=== PATIENT | female | born 1975 | race Caucasian/White ===

== ENCOUNTER 2020-02-27 09:38 | Outpatient (CLI) | payer OTHER, SELFPAY ==
[2020-02-28 14:30] LABS: SARS-CoV-2 RNA PCR Negative
== END 2020-02-27 09:39 | disposition home or self-care (01) ==
LOC: CHSLAB 09:43
PROVIDERS: PCP Internal Medicine; Visit Provider Internal Medicine
DX: R05 Cough (principal); R43.9 Unspecified disturbances of smell and taste; R52 Pain, unspecified
CPT/HCPCS: 87635; C9803; U0003

== ENCOUNTER 2020-08-05 11:11 | Outpatient (CLI) | payer BC, SELFPAY ==
[2020-08-05 12:05] LABS: Influenza Control Valid (Valid); SARS-CoV-2 Ag Negative (Negative)
[2020-08-06 18:33] LABS: SARS-CoV-2 RNA PCR Negative
== END 2020-08-05 11:12 | disposition home or self-care (01) ==
LOC: CHSLAB 11:19
PROVIDERS: PCP Internal Medicine; Visit Provider Internal Medicine
DX: R52 Pain, unspecified (principal); R50.9 Fever, unspecified; Z20.822 Contact with and (suspected) exposure to COVID-19
CPT/HCPCS: 87426; 87804; C9803; U0003; U0005

== ENCOUNTER 2021-01-07 13:01 | Outpatient (CLI) | payer BC, SELFPAY ==
[2021-01-07 14:25] LABS: SARS-CoV-2 RNA PCR Negative (Negative)
== END 2021-01-07 13:02 | disposition home or self-care (01) ==
LOC: CHSLAB 13:04
PROVIDERS: PCP Internal Medicine; Visit Provider Internal Medicine
DX: J06.9 Acute upper respiratory infection, unspecified (principal); Z20.822 Contact with and (suspected) exposure to COVID-19
CPT/HCPCS: C9803; U0003; U0005

== ENCOUNTER 2021-04-25 10:33 | Outpatient (CLI) | payer BC, SELFPAY ==
[2021-04-25 12:12] LABS: SARS-CoV-2 RNA PCR Negative (Negative)
== END 2021-04-25 10:34 | disposition home or self-care (01) ==
LOC: CHSLAB 10:35
PROVIDERS: PCP Internal Medicine; Visit Provider Internal Medicine
DX: Z20.822 Contact with and (suspected) exposure to COVID-19 (principal)
CPT/HCPCS: C9803; U0003; U0005

== ENCOUNTER 2021-06-09 09:39 | Outpatient (CLI) | payer BC, SELFPAY ==
[2021-06-09 11:01] LABS: Influenza Control Valid (Valid); SARS-CoV-2 Ag Negative (Negative)
== END 2021-06-09 09:40 | disposition home or self-care (01) ==
LOC: CHSLAB 09:41
PROVIDERS: PCP Internal Medicine; Visit Provider Internal Medicine
DX: J06.9 Acute upper respiratory infection, unspecified (principal); Z20.822 Contact with and (suspected) exposure to COVID-19
CPT/HCPCS: 87081; 87426; 87804; 87880; C9803

== ENCOUNTER 2021-07-23 13:25 | Outpatient (CLI) | payer BC, SELFPAY ==
--- NOTE | ~2021-07-23 | XR_ITS ---
EXAMINATION: XR chest 2V 07/23/2021 13:45 INDICATION: Wheezing and cough PROCEDURE: 2 view chest COMPARISON: 07/18/2012 FINDINGS: The lungs are clear. The cardiomediastinal silhouette is within normal limits. There are no pleural effusions. There is no pneumothorax suspected. IMPRESSION: 1: NO ACUTE CARDIOPULMONARY DISEASE. Reviewed, dictated and finalized at location A. ORT OPERATIONS SPECIALIST
[2021-07-23 13:37] LABS: Basophils Absolute Auto 0.03 K/mm3 (0.00-0.10); Basophils Percent Auto 0.3 % (0.0-1.0); Eosinophils Absolute Auto 0.18 K/mm3 (0.02-0.50); Eosinophils Percent Auto 1.7 % (1.0-6.0); Hematocrit 45.6 % (35.0-49.0); Hemoglobin 15.3 g/dL (12.0-15.0); Immature Granulocyte Absolute 0.03 K/mm3 (0.00-0.00); Immature Granulocyte Percent A 0.3 % (0.0-0.0); Lymphocytes Absolute Auto 2.94 K/mm3 (1.10-4.50); Mean Corpuscular HGB Conc 33.6 g/dL (32.0-36.0); Mean Corpuscular Hemoglobin 30.4 pg (27.0-31.0); Mean Corpuscular Volume 90.7 fL (78.0-102.0); Mean Platelet Volume 10.3 fl (9.2-11.8); Monocytes Absolute Auto 0.97 K/mm3 (0.10-0.90); Monocytes Percent Auto 9.2 % (2.0-11.0); Neutrophils Absolute Auto 6.4 K/mm3 (1.7-7.2); Neutrophils Percent Auto 60.5 % (50.0-70.0); Platelet Count Result 266 K/mm3 (150-420); Red Blood Count 5.03 M/mm3 (4.20-5.40); White Blood Count 10.5 K/mm3 (4.8-10.8)
[2021-07-23 13:45] LABS: Hemoglobin A1C 6.1 % (<5.7)
[2021-07-23 14:19] LABS: Alanine Aminotransferase 30 U/L (14-59); Albumin Level 3.7 g/dL (3.4-5.0); Alkaline Phosphatase 76 U/L (46-116); Anion Gap 9 mmol/L (8-16); Aspartate Amino Transferase 15 U/L (15-37); Bilirubin,Total 0.5 mg/dL (0.00-1.00); Blood Urea Nitrogen 10 mg/dL (7-18); Calcium 8.9 mg/dL (8.5-10.1); Carbon Dioxide 28 mmol/L (21-32); Chloride 102 mmol/L (98-108); Estimated Glomerular Filt Rate > 60; Glucose 92 mg/dL (70-99); Osmolality Calculated 287 mOsm/kg (285-295); Sodium 139 mmol/L (136-145); Total Protein 7.2 g/dL (6.4-8.2)
== END 2021-07-23 13:26 | disposition home or self-care (01) ==
LOC: CHSLAB 13:28
PROVIDERS: PCP Internal Medicine; Visit Provider Internal Medicine
DX: R06.2 Wheezing (principal); R05.9 Cough, unspecified; E11.9 Type 2 diabetes mellitus without complications
CPT/HCPCS: 36415; 71046; 80053; 83036; 85025

== ENCOUNTER 2021-09-17 09:37 | Outpatient (CLI) | payer BC, SELFPAY ==
--- NOTE | ~2021-09-17 | XR_ITS ---
EXAMINATION: XR chest 2V DATE: 09/17/2021 09:55 INDICATION: Pectus excavatum. Chest lump. TECHNIQUE: Frontal and lateral views of the chest were obtained. COMPARISON: Chest 2 views 07/23/2021, chest CT 07/18/2012 FINDINGS: There is no pneumonia, pleural effusion, or pneumothorax. The heart size is normal. Surgica l clips in the right upper quadrant are likely from cholecystectomy. There is no pectus excavatum. Th e inferior tip of the xiphoid process curves anteriorly, a normal variant. IMPRESSION: 1. The inferior tip of the xiphoid process curves anteriorly, a normal variant. Reviewed, dictated and finalized at location A.
== END 2021-09-17 09:38 | disposition home or self-care (01) ==
LOC: CHSIMG 09:39
PROVIDERS: PCP Internal Medicine; Visit Provider Nurse Practitioner Family
DX: Q67.6 Pectus excavatum (principal); R22.2 Localized swelling, mass and lump, trunk
CPT/HCPCS: 71046

== ENCOUNTER 2021-09-30 08:02 | Outpatient (CLI) | payer BC, SELFPAY ==
--- NOTE | ~2021-09-30 | CT_ITS ---
EXAMINATION: CT diagnostic chest w con DATE: 09/30/2021 08:48 INDICATION: Chest mass for 2 weeks at lower sternal area. No pain. Smoker. TECHNIQUE: Computed tomography (CT) of the chest was performed with 100 CC Omnipaque 350 intravenous contrast. Automated exposure control and iterative reconstruction technique were employed. Exam dose: 225.43 mGy-cm total exam DLP. COMPARISON: 09/17/2021 2 view chest 07/18/2012 CT chest FINDINGS: Normal heart size. No pericardial effusion. No hilar or mediastinal mass lesion or lymphade nopathy. No thoracic aortic aneurysm or dissection. No evidence of pulmonary embolism. No pulmonary infiltrate or consolidation or pulmonary mass lesion. Normal morphology of the adrenal glands. Status post cholecystectomy. The xiphoid process of the sternum projects anteriorly, which likely accounts for the clinical compla int of lump in this area. Included skeletal structures are otherwise unremarkable. IMPRESSION: Anteriorly projecting xiphoid process of sternum, which likely accounts for the clinical ly described chest mass at the lower sternal area Reviewed, dictated and finalized at Location A. Reviewed, dictated and finalized at location B. IMPRESSION: Anteriorly projecting xiphoid process of sternum, which likely acc ounts for the clinically described chest mass at the lower sternal area
== END 2021-09-30 08:03 | disposition home or self-care (01) ==
LOC: CHSIMG 08:04
PROVIDERS: PCP Internal Medicine; Visit Provider Nurse Practitioner Family
DX: R22.2 Localized swelling, mass and lump, trunk (principal)
CPT/HCPCS: 71260; Q9967

== ENCOUNTER 2023-03-31 16:05 | Outpatient (CLI) | payer BC, SELFPAY ==
[2023-03-31 16:55] LABS: SARS-CoV-2 RNA PCR Negative (Negative)
== END 2023-03-31 16:06 | disposition home or self-care (01) ==
LOC: CHSLAB 16:06
PROVIDERS: PCP Internal Medicine; Visit Provider Internal Medicine
DX: J06.9 Acute upper respiratory infection, unspecified (principal)
CPT/HCPCS: 87635

== ENCOUNTER 2024-04-30 11:52 | Emergency (ER) | payer BC, SELFPAY ==
--- NOTE | ~2024-04-30 | XR_ITS ---
EXAMINATION: XR lumbar spine 2-3V DATE: 04/30/2024 12:40 INDICATION: Right-sided low back pain. TECHNIQUE: 3 views of lumbar spine were obtained. COMPARISON: None. FINDINGS: There is 9 degrees levocurvature of thoracolumbar spine. Vertebral body heights are normal. Intervertebral disc heights are normal. There is multilevel mild facet joint osteoarthritis. Surgica l clips in the right upper quadrant are likely from cholecystectomy. IMPRESSION: 1. Mild lumbar facet joint osteoarthritis. Reviewed, dictated and finalized at location A. TER SUPERVISOR
[2024-04-30 11:53] VITALS: BP 118/99; PULSE 98; RESP 20; TEMP 36.7; O2SAT 95
--- NOTE | 2024-04-30 12:01 | ED_ITS ---
HPI - Back Pain/Injury General Chief Complaint: Back Pain/Injury Stated Complaint: rt. side flank pain Source: patient and family Mode of arrival: ambulatory Limitations: no limitations History of Present Illness HPI Narrative: patient is a 48-year-old female with a right lower back pain after moving boxes 3 days ago. She was doing lots of activities and was pulling on her back 3 years ago. She tried her mother's Flexeril and it was somewhat helpful. No direct injury to her back. No midline pain of her spine. No sciatic type pains. MD elicited complaint: back pain Pertinent past history: prior back pain Onset (ago): day(s) (3) Timing: constant Severity: severe Pain scale (0-10): 8 Similar Symptoms Previously: No Quality: sharp, tingling and spasming Location: lumbar spine ( Right paraspinal muscles) Radiation: none Exacerbating factors: movement, coughing/sneezing and lifting Relieving factors: immobilization Context: while lifting, turning/twisting and other ( patient was moving boxes and sustained a right lower back pain 3 days ago which is continuing at this time and progressively worse) Associated symptoms: denies other symptoms Treatments prior to arrival: NSAIDS Work related injury: No Related Data Home Medications Medication Instructions Recorded Confirmed atorvastatin 40 mg tablet 40 mg PO DAILY 11/19/21 04/30/24 metformin 500 mg tablet 500 mg PO BID 11/19/21 04/30/24 sertraline 100 mg tablet 200 mg PO DAILY 11/19/21 04/30/24 trazodone 50 mg tablet 50 mg PO QHS PRN Sleep 11/19/21 04/30/24 Allergies Allergy/AdvReac Type Severity Reaction Status Date / Time codeine Allergy Intermediate Vomiting Verified 04/30/24 12:25 Review of Systems Review of Systems: All systems reviewed & are unremarkable except as noted in HPI and below Constitutional: Constitutional: Reports no additional constitutional complaints Eyes: Eyes: Reports no additional eye complaints ENT: Reports system reviewed and no additional complaints, except as documented Cardiovascular: Cardiovascular: Reports no additional cardiovascular complaints Respiratory: Respiratory: Reports no additional respiratory complaints Gastrointestinal: Gastrointestinal: Reports no additional gastrointestinal complaints Genitourinary: Genitourinary: Reports no additional female genitourinary complaints Musculoskeletal: Musculoskeletal: Reports no additional musculoskeletal complaints Integumentary/Breasts: Skin/Breast: Reports system reviewed and no additional complaints, except as docu Neurologic: Reports system reviewed and no additional complaints, except as documented Psychiatric: Psychiatric: Reports no additional psychiatric complaints Endocrine: Endocrine: Reports no additional endocrine complaints Hematologic/Lymphatic: Hematologic/Lymphatic: Reports no additional hematologic/lymphatic complaints Allergic/Immunologic: Allergic/Immunologic: Reports no additional allergic/immunologic complaints PMFSH Past Medical History Medical History Acne Anxiety Depression Encounter for IUD insertion 02/16/11 Mirena insertion Gestational diabetes High cholesterol Polycystic ovarian syndrome Screening mammogram, encounter for Surgical History Surgical History H/O LEEP 1997--cervical dysplasia History of bilateral salpingectomy 12/20/18 desired sterilization/Mirena IUD removed History of 04/03/09 primary c/s--gdm associated w/macrosomia declined trial labor History of cholecystectomy 2012 History of hysteroscopy 11/12/00 d&c--irregular menses Family History Family History Other Ovarian cancer Social History Social History Smoking packs per day: 0.5 Smoking cigarettes per day: 10.0 Smoking status: Current every day smoker Tobacco type: cigarettes Alcohol intake: never Substance use: never Substance use type: does not use Living arrangements: other Additional living arrangements comments: Occupation/Education: occupation 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 Gender identity (if verbalized by the patient): Female Sexual Orientation (if Verbalized by the Patient): Straight or Heterosexual Exam Const: General: healthy appearing Nutritional Appearance: well nourished Orientation/consciousness: patient oriented x3 Other: patient in acute pain of the right lower back HENMT: Head: normal to inspection Ears: external ears normal Face/Nose/Sinus: Normal external nose present Eyes: Conjunctivae: conjunctivae normal Pupils: Equal, round and reactive pupils present EOM: EOMs intact bilaterally Neck: Neck: normal visual inspection Chest: Chest palpation & inspection: normal inspection of the chest Resp: Effort & Inspection: normal respiratory effort and not labored Auscultation: clear to auscultation bilaterally and no crackles Cardio: Rate: regular rate Rhythm: regular rhythm Heart sounds: no murmurs GI: Inspection: non-distended GI Palp: Yes Soft to palpation, No Tenderness to palpation present (GI), No Guarding due to palpation present (GI), No Rigid due to palpation, No Hernia present, No Palpable mass present and No Rebound tenderness present Auscultation: bowels sounds not normal : General: Yes bladder normal to palpation Back/Spine/Pelvis: Back: no CVA tenderness Other: she has a tender area on her lower back was is reproducible on palpation; this appears to be in knots. The area slightly swollen and tender. There is muscle spasms. Skin: General skin exam: normal color Rashes: no rashes Wounds: no wounds Neuro: General: patient oriented x3, moves all extremities, no meningeal signs, no focal motor deficits and CN's II-XI intact bilaterally Cranial nerves: Yes Nystagmus not present Speech: normal speech Other: fast exam is negative, GCS is 15, NIH is 0 Extrem: General: normal to inspection Psych: Mental Status: mental status grossly normal Affect: normal affect Attitude: cooperative Course Vital Signs Vital signs: Vital Signs Temperature 36.7 C 04/30/24 11:53 Pulse Rate 98 04/30/24 11:53 Respiratory Rate 20 04/30/24 11:53 Blood Pressure 118/99 H 04/30/24 11:53 Pulse Oximetry 95 04/30/24 11:53 Oxygen Delivery Room Air 04/30/24 11:53 Temperature 36.7 C 04/30/24 11:53 Pulse Rate 98 04/30/24 11:53 Respiratory Rate 20 04/30/24 11:53 Blood Pressure 118/99 H 04/30/24 11:53 Pulse Oximetry 95 04/30/24 11:53 Oxygen Delivery Room Air 04/30/24 11:53 MDM - Back Pain/Injury MDM Narrative Medical decision making narrative: Patient is a 48-year-old female with right lower back pain after moving boxes. We will go ahead and get an x-ray and pain management at this time. Lab Data Labs: Lab Results 04/30/24 Range/Units 12:04 Urine Color Light yellow (Yellow) Urine Appearance Clear (Clear) Urine pH 6.0 (5.0-8.0) Ur Specific [place] <= 1.005 L (1.010-1.020) Urine Protein Negative (Negative) Urine Glucose (UA) Negative (Negative) Urine Ketones Negative (Negative) Ur Blood (Man) Negative (Negative) Urine Nitrate Negative (Negative) Urine Bilirubin Negative (Negative) Urine Urobilinogen 0.2 (0.2-1.0) mg/dL Leukocyte Esterase Rfl Negative (Negative) GENE/UL Imaging Data Attestation: I personally reviewed and interpreted this imaging study as follows: Radiologist's impression: lumbar x-rays negative for acute process Discharge Plan Discharge Clinical Impression: Lumbago Qualifiers: Chronicity: acute Back pain laterality: right Sciatica presence: without sciatica Qualified Code(s): M54.50 - Low back pain, unspecified Patient Disposition: Home, Self-Care Condition: Improved Instructions: Acute Low Back Pain (ED) Prescriptions: New orphenadrine citrate 100 mg tablet extended release 100 mg PO BID PRN (Reason: muscle spasm) Qty: 20 0RF hydrocodone-acetaminophen 10-325 mg tablet 1 tablet PO Q8H PRN (Reason: pain) Qty: 20 0RF Rx Instructions: 1/2-1 tab per dose methylprednisolone [Medrol (Javy)] 4 mg tablets,dose pack See Rx Instructions .ROUTE .COMPLEX Qty: 21 0RF Rx Instructions: orally per package directions No Action atorvastatin 40 mg tablet 40 mg PO DAILY metformin 500 mg tablet 500 mg PO BID sertraline 100 mg tablet 200 mg PO DAILY trazodone 50 mg tablet 50 mg PO QHS PRN (Reason: Sleep) Follow-up/Referrals: Kanchan Mercado APRN [Advanced Practice Nurse] - Time of Disposition: 13:29
[2024-04-30] MEDS: KETOROLAC (*BKC) 60 MG/2 ML VIAL IM (12:25)
[2024-04-30] MEDS: ORPHENADRINE CITRATE 100 MG TABLET.ER PO (12:26)
[2024-04-30] MEDS: predniSONE 20 MG TABLET 40 MG PO (12:26)
[2024-04-30 12:31] LABS: Add Urine Microscopic? NO; Appearance Urine Clear (Clear); Bilirubin Urine Negative (Negative); Blood Urine Negative (Negative); Color Urine Light Yellow (Yellow); Glucose Urine UA Negative (Negative); Ketones Urine Negative (Negative); Leukocyte Esterase Ur Negative LEU/UL (Negative); Nitrate Urine Negative (Negative); Protein Urine Negative (Negative); Specific Grav Ur <= 1.005 (1.010-1.020); Urobilinogen Urine 0.2 mg/dL (0.2-1.0)
[2024-04-30 13:32] VITALS: BP 105/69; PULSE 85; RESP 16; TEMP 36.8; O2SAT 100
== END 2024-04-30 13:32 | disposition home or self-care (01) ==
PROVIDERS: Emergency Provider Emergency Medicine; PCP Internal Medicine
DX: M54.50 Low back pain, unspecified (principal); F17.210 Nicotine dependence, cigarettes, uncomplicated; Z79.84 Long term (current) use of oral hypoglycemic drugs; Z79.899 Other long term (current) drug therapy
CPT/HCPCS: 72100; 81003; 96372; 99283; A9270; J1885; J7512